=== PATIENT | female | born 1995 | race Caucasian/White ===

== ENCOUNTER 2019-11-11 11:28 | Emergency (ER) | payer MEDICAID, OTHER ==
[~2019-11-11] VITALS: Ht 170.2 cm; Wt 86.2 kg
--- NOTE | 2019-11-11 11:41 | NUR ---
patient brought into the room. collected urine. waiting for doctor to see her.
[2019-11-11] MEDS ORDERED: LIDOCAINE HCL 2% 20 ML VIAL ONE (12:03)
[2019-11-11 12:06] LABS: *URINE HCG, QUAL NEGATIVE (NEGATIVE)
--- NOTE | 2019-11-11 12:15 | NUR ---
Assissted doctor for I&D at bedside.
--- NOTE | 2019-11-11 12:22 | NUR ---
given patient discharge instructions and follow up instructions and refferal to office assistant.
--- NOTE | 2019-11-11 12:28 | NUR ---
discharge instructions given with prescriptions and refferal. signed and understood instructions.
[2019-11-11 12:38] VITALS: BP 110/64
== END 2019-11-11 12:40 | disposition home or self-care (01) ==
LOC: ER 11:28
PROC: 0U9L0ZZ Drainage of Vestibular Gland, Open Approach (ICD-10-PCS; principal; 2019-11-11)
DX: N75.1 Abscess of Bartholin's gland (principal)
CPT/HCPCS: 56420; 84703; 99284; J3490; A4663

== ENCOUNTER 2019-11-12 11:42 | Emergency (ER) | payer OTHER ==
[~2019-11-12] VITALS: Ht 170.2 cm; Wt 81.6 kg
--- NOTE | 2019-11-12 12:00 | NUR ---
assissted md with 1@d of the right labia, pt tolerated well. Addendum: 11/12/19 at 1236 by ABEL purvi olivares was missing.
[2019-11-12] MEDS ORDERED: LIDOCAINE HCL 2% 20 ML VIAL ONE (12:03)
[2019-11-12] MEDS ORDERED: CEFTRIAXONE 1 G VIAL ONE (12:24)
[2019-11-12] MEDS ORDERED: LIDOCAINE HCL 1% 20 ML VIAL ONE (12:24)
[2019-11-12] MEDS ORDERED: CEFTRIAXONE 1 G VIAL IM ONE (12:30)
[2019-11-12] MEDS ORDERED: LIDOCAINE HCL 2% 20 ML VIAL IJ ONE (12:30)
--- NOTE | 2019-11-12 12:32 | NUR ---
Patient discharged to home in stable condition. Written and verbal after care instructions given. Patient verbalizes understanding of instructions. Stressed follow up or return to ER for worsening s/s.
== END 2019-11-12 12:35 | disposition home or self-care (01) ==
LOC: ER 11:42
DX: N75.1 Abscess of Bartholin's gland (principal)
CPT/HCPCS: 56420; 87070; 96372; 99283; J0696; J3490 ×2; A4663

== ENCOUNTER 2019-11-14 13:19 | Emergency (ER) | payer OTHER ==
[~2019-11-14] VITALS: Ht 170.2 cm; Wt 86.2 kg
--- NOTE | 2019-11-14 13:30 | NUR ---
MD REMOVED THE DRESSING AND THE PACKED IODOFORM. PT TOLERATED WELL, NO PUSS/D/C NOTICED. PT DENIES ANY PAIN OR DISCOMFORT.
== END 2019-11-14 13:38 | disposition home or self-care (01) ==
LOC: ER 13:19
DX: Z48.816 Encounter for surgical aftercare following surgery on the genitourinary system (principal); N75.0 Cyst of Bartholin's gland
CPT/HCPCS: A4663